=== PATIENT | male | born 1970 | race Caucasian/White ===

== ENCOUNTER 2020-11-05 05:19 | Emergency (ER) | payer SELFPAY ==
[~2020-11-05] VITALS: Ht 177.8 cm; Wt 81.7 kg
[2020-11-05] MEDS ORDERED: DOXYCYCLINE HY100 MG PO (05:37)
== END 2020-11-05 06:02 | disposition home or self-care (01) ==
LOC: ED 05:19
DX: R21 Rash and other nonspecific skin eruption (principal); B99.9 Unspecified infectious disease
CPT/HCPCS: 99282